=== PATIENT | male | born 1935 | race Caucasian/White ===

== ENCOUNTER 2020-12-08 14:15 | Day surgery (SDCO) | payer MEDICARE, OTHER ==
[~2020-12-08 14:15] MED LIST: MOBIC7.5 MG PO; ULTRAM50 MG PO
[2020-12-08 16:46] LABS: BASOPHIL 0.3 % (0-2); EOSINOPHIL 0 % (0-7); HCT 44.5 % (42.0-52.0); HGB 13.8 g/dl (13.2-18.0); LYMPHOCYTE 5.4 % (15-48); MCH 27.7 pg (25.0-31.0); MCV 89.4 fL (78.0-100.0); MONOCYTE 12.8 % (0-12); MPV 10.8 fL (6.0-9.5); NRBC 0; PLT 180 K/uL (150-400); RBC 4.98 M/uL (4.70-6.00); RDW 14.6 % (11.5-14.0); WBC 12.4 K/uL (4.0-10.5)
[2020-12-08 16:51] LABS: INR 1.11 (0.9-1.2); PROTHROMBIN TIME 13.6 SECONDS (11.4-13.6); PTT 33.9 SECONDS (22.2-34.7)
[2020-12-08 17:10] LABS: ALBUMIN 3.2 g/dL (3.4-5.0); BILIRUBIN - TOTAL 1.2 mg/dL (0.2-1.0); BUN/CREAT RATIO (CALC) 15.6 RATIO; C-REACTIVE PROTEIN 6.2 mg/dL (<=0.90); CREATININE 1.6 mg/dL (0.67-1.17); MAGNESIUM 2.4 mg/dL (1.8-2.4); POTASSIUM 5.1 mmol/L (3.5-5.1); TOTAL PROTEIN 7.2 g/dL (6.4-8.2)
[2020-12-08 17:53] LABS: BILIRUBIN NEGATIVE (NEGATIVE); BLOOD NEGATIVE Ery/uL (NEGATIVE); CLARITY CLEAR (CLEAR); COLOR YELLOW (YELLOW); GLUCOSE (U) NORMAL (NORMAL); LEUKOCYTES NEGATIVE Leu/uL (NEGATIVE); NITRITE NEGATIVE (NEGATIVE); PROTEIN NEGATIVE (NEGATIVE); UROBILINOGEN 0.2 mg/dL (0.2-1.0)
[2020-12-08] MEDS ORDERED: NORVASC5 MG PO (23:45)
[2020-12-08] MEDS ORDERED: AMIODARONE HCL200 MG PO (23:45)
[2020-12-08] MEDS ORDERED: NORCO 5-325 TA1 EACH PO (23:45)
[2020-12-08] MEDS ORDERED: COZAAR50 MG PO (23:46)
[2020-12-08] MEDS ORDERED: LIPITOR40 MG PO (23:46)
[2020-12-08] MEDS ORDERED: ASPIRIN CHEWABL81 MG PO (23:46)
[2020-12-08] MEDS ORDERED: PROTONIX 40MG T40 MG PO (23:46)
[2020-12-08] MEDS ORDERED: KEFLEX250 MG PO (23:48)
[2020-12-09 06:00] LABS: BASOPHIL 0.4 % (0-2); EOSINOPHIL 0.4 % (0-7); HCT 39.2 % (42.0-52.0); LYMPHOCYTE 13.4 % (15-48); MCH 27.3 pg (25.0-31.0); MCHC 30.6 g/dL (32.0-36.0); MCV 89.3 fL (78.0-100.0); MONOCYTE 17.9 % (0-12); MPV 11.3 fL (6.0-9.5); NEUTROPHIL 67.5 % (41-80); NRBC 0; PLT 158 K/uL (150-400); RBC 4.39 M/uL (4.70-6.00); RDW 14.9 % (11.5-14.0); WBC 9.5 K/uL (4.0-10.5)
[2020-12-09 06:22] LABS: BUN/CREAT RATIO (CALC) 17.9 RATIO; CREATININE 1.4 mg/dL (0.67-1.17); POTASSIUM 4.5 mmol/L (3.5-5.1)
--- NOTE | 2020-12-09 17:24 | NUR ---
SPOKE TO BOTH SHAUNA AND ÁLVARO DELGADO HIS POA HE HAS ROLLING WALKER, CANE, AT HOME, HE HAS A SHOWER CHAIR AT HOME. HE HAS A USED HOSPITAL. OT RECCOMMENDED HE HAD HOME HEALTH; EXPLAINED ALL OPTIONS AFFILIATIONS EXPLAINED AND HE WANTED WHO HE HAS LAST TIME ÁLVARO SAID SHE CANT REMEMBER WHO IF I CANT FIND OUT WHO IT WAS I CAN USE WHOEVER TAKES INSURANCE. WILL CALL AROUND HOME [facility] TO SEE WHO HAD HIM. IF I CAN NOT FIND ONE BOTH PT AND ÁLVARO SAID TO PICK ONE THAT WILL TAKE HIS INSURANCE.
--- NOTE | 2020-12-09 17:56 | NUR ---
[facility] CONFIRMED [facility] DID NOT HAVE PT WELL; CALLED EROS LARA FROM A SENT REFERRAL WITH PT/OT NOTES, H&P AND FACESHEET WITH CORRECT ADDRESS PT WILL BE GOING TO AFTER DISCHARGE; SHE CONFIRMED SHE HAD THE REFERRL
--- NOTE | 2020-12-09 17:57 | NUR ---
IF PT DISCHARGES OVER WEEKEND PLEASE CALL EROS AT A [phone] TO NOTIFY OF DISCHARGE
[2020-12-09 18:51] LABS: IRON % SATURATION 7.6 %SAT (20-50)
[2020-12-10 04:28] LABS: BASOPHIL 0.1 % (0-2); EOSINOPHIL 0 % (0-7); HCT 40.2 % (42.0-52.0); HGB 12.5 g/dl (13.2-18.0); LYMPHOCYTE 7.9 % (15-48); MCH 27.9 pg (25.0-31.0); MCHC 31.1 g/dL (32.0-36.0); MCV 89.7 fL (78.0-100.0); MPV 11.4 fL (6.0-9.5); NEUTROPHIL 82.5 % (41-80); NRBC 0; PLT 175 K/uL (150-400); RBC 4.48 M/uL (4.70-6.00); WBC 10.6 K/uL (4.0-10.5)
[2020-12-10 04:46] LABS: BUN/CREAT RATIO (CALC) 20.2 RATIO; CREATININE 1.24 mg/dL (0.67-1.17); MAGNESIUM 2.2 mg/dL (1.8-2.4); POTASSIUM 4.8 mmol/L (3.5-5.1)
[2020-12-10] MEDS ORDERED: TOPROL XL100 MG PO (09:18)
[2020-12-10] MEDS ORDERED: PERCOCET 5-3251 EACH PO (09:18)
== END 2020-12-10 12:37 | disposition home health service (06) ==
LOC: FER 14:15 → FMS 21:41
PROVIDERS: Emergency Medicine; Nurse Practitioner; ADMIT Internal Medicine
DX: I12.9 Hypertensive chronic kidney disease with stage 1 through stage 4 chronic kidney disease, or unspecified chronic kidney disease (principal); N18.30 Chronic kidney disease, stage 3 unspecified; N17.9 Acute kidney failure, unspecified; I48.0 Paroxysmal atrial fibrillation; I25.10 Atherosclerotic heart disease of native coronary artery without angina pectoris; I25.2 Old myocardial infarction; E78.5 Hyperlipidemia, unspecified; K21.9 Gastro-esophageal reflux disease without esophagitis; M19.90 Unspecified osteoarthritis, unspecified site; J45.909 Unspecified asthma, uncomplicated; M25.722 Osteophyte, left elbow; M25.522 Pain in left elbow; M19.022 Primary osteoarthritis, left elbow; Z85.46 Personal history of malignant neoplasm of prostate; Z79.82 Long term (current) use of aspirin; Z79.899 Other long term (current) drug therapy; Z88.8 Allergy status to other drugs, medicaments and biological substances; Z95.0 Presence of cardiac pacemaker; Z20.822 Contact with and (suspected) exposure to COVID-19; W18.30XA Fall on same level, unspecified, initial encounter
CPT/HCPCS: 36415; 70450; 71045; 73070; 73200; 80048; 80053; 81003; 82550; 82607; 82728; 83540; 83550; 83615; 83735; 83880; 84145; 84484; 85025; 85610; 85730; 86140; 93005; 96374; 96375; 97162; 97166; 97530-GP; 97535; G0378; J1170; J1650; J2405; J2930; J3420; J7030; U0002

== ENCOUNTER 2021-08-04 10:00 | Emergency (ER) | payer MEDICARE, OTHER ==
[~2021-08-04 10:00] MED LIST changes: +AMIODARONE HCL200 MG PO; +CHILDREN'S ASPI81 MG PO; +COZAAR50 MG PO; +KEFLEX250 MG PO; +LIPITOR40 MG PO; +NORCO 5-325 TA1 EACH PO; +NORVASC5 MG PO; +PERCOCET 5-3251 EACH PO; +PROTONIX 40MG T40 MG PO; +TOPROL XL100 MG PO
[2021-08-04 10:54] LABS: BASOPHIL 0.8 % (0-2); EOSINOPHIL 1.2 % (0-7); HCT 45.4 % (42.0-52.0); HGB 14.7 g/dl (13.2-18.0); LYMPHOCYTE 4.6 % (15-48); MCH 29.9 pg (25.0-31.0); MCHC 32.4 g/dL (32.0-36.0); MCV 92.5 fL (78.0-100.0); MONOCYTE 7.8 % (0-12); NEUTROPHIL 81.1 % (41-80); NRBC 0; PLT 174 K/uL (150-400); RBC 4.91 M/uL (4.70-6.00); RDW 15.5 % (11.5-14.0); WBC 12.1 K/uL (4.0-10.5)
[2021-08-04 11:28] LABS: PRO-BNP 2324 pg/mL (<450)
[2021-08-04 11:30] LABS: ALBUMIN 2.4 g/dL (3.4-5.0); BUN/CREAT RATIO (CALC) 18.6 RATIO; CREATININE 1.77 mg/dL (0.67-1.17); GLOBULIN (CALCULATION) 3.3 g/dL; POTASSIUM 5.1 mmol/L (3.5-5.1); TOTAL PROTEIN 5.7 g/dL (6.4-8.2)
[2021-08-04] MEDS ORDERED: K-DUR20 MEQ PO (13:24)
[2021-08-04] MEDS ORDERED: LASIX20 MG PO (13:24)
== END 2021-08-04 15:40 | disposition home or self-care (01) ==
LOC: FER 10:00
PROVIDERS: Emergency Medicine
DX: I11.0 Hypertensive heart disease with heart failure (principal); I50.9 Heart failure, unspecified; N17.9 Acute kidney failure, unspecified; U07.1 COVID-19; Z23 Encounter for immunization; Z88.8 Allergy status to other drugs, medicaments and biological substances
CPT/HCPCS: 36415; 36600; 71045; 80053; 82803; 83880; 84484; 85025; 93005; J1940; M0243; Q0244

== ENCOUNTER 2021-08-14 11:41 | Inpatient (IN) | payer MEDICARE, OTHER ==
[~2021-08-14] VITALS: Ht 190.5 cm; Wt 95.3 kg
[~2021-08-14 11:41] MED LIST changes: +K-DUR20 MEQ PO; +LASIX20 MG PO
[2021-08-14 12:52] LABS: BASOPHIL 1.2 % (0-2); HCT 43.1 % (42.0-52.0); HGB 13.9 g/dl (13.2-18.0); LYMPHOCYTE 3.4 % (15-48); MCH 29.9 pg (25.0-31.0); MCHC 32.3 g/dL (32.0-36.0); MCV 92.7 fL (78.0-100.0); MONOCYTE 6.8 % (0-12); MPV 10.7 fL (6.0-9.5); NEUTROPHIL 74.6 % (41-80); NRBC 0; PLT 256 K/uL (150-400); RBC 4.65 M/uL (4.70-6.00); RDW 15.9 % (11.5-14.0); WBC 17.2 K/uL (4.0-10.5)
[2021-08-14 13:13] LABS: ALBUMIN 1.7 g/dL (3.4-5.0); BILIRUBIN - TOTAL 0.8 mg/dL (0.2-1.0); BUN/CREAT RATIO (CALC) 20.9 RATIO; CREATININE 2.68 mg/dL (0.67-1.17); GLOBULIN (CALCULATION) 3.9 g/dL; POTASSIUM 5.8 mmol/L (3.5-5.1); TOTAL PROTEIN 5.6 g/dL (6.4-8.2)
[2021-08-14 13:22] LABS: PRO-BNP 1291 pg/mL (<450)
[2021-08-14 13:24] LABS: BILIRUBIN NEGATIVE (NEGATIVE); BLOOD NEGATIVE Ery/uL (NEGATIVE); CLARITY CLEAR (CLEAR); COLOR YELLOW (YELLOW); GLUCOSE (U) NORMAL (NORMAL); LEUKOCYTES NEGATIVE Leu/uL (NEGATIVE); NITRITE NEGATIVE (NEGATIVE); PROTEIN NEGATIVE (NEGATIVE); SPECIFIC GRAVITY 1.015 (1.001-1.030); UROBILINOGEN 0.2 mg/dL (0.2-1.0); pH 5.5 (5.0-9.0)
[2021-08-14 23:45] LABS: URINE CREATININE 61.79 mg/dL (29.00-226.00)
[2021-08-15 06:26] LABS: BASOPHIL 1.3 % (0-2); EOSINOPHIL 4.6 % (0-7); HCT 44.3 % (42.0-52.0); HGB 14.3 g/dl (13.2-18.0); LYMPHOCYTE 5.7 % (15-48); MCH 29.7 pg (25.0-31.0); MCHC 32.3 g/dL (32.0-36.0); MCV 91.9 fL (78.0-100.0); MONOCYTE 6.3 % (0-12); MPV 10.5 fL (6.0-9.5); NEUTROPHIL 72.4 % (41-80); NRBC 0.1; PLT 261 K/uL (150-400); RBC 4.82 M/uL (4.70-6.00); RDW 15.9 % (11.5-14.0); WBC 15.5 K/uL (4.0-10.5)
[2021-08-15 06:45] LABS: BUN/CREAT RATIO (CALC) 21.5 RATIO; CREATININE 2.56 mg/dL (0.67-1.17); POTASSIUM 4.7 mmol/L (3.5-5.1)
[2021-08-16 06:40] LABS: BASOPHIL 1.3 % (0-2); EOSINOPHIL 4.1 % (0-7); HCT 46.1 % (42.0-52.0); HGB 14.7 g/dl (13.2-18.0); LYMPHOCYTE 5.5 % (15-48); MCH 29.8 pg (25.0-31.0); MCHC 31.9 g/dL (32.0-36.0); MCV 93.3 fL (78.0-100.0); MONOCYTE 6.6 % (0-12); MPV 10.5 fL (6.0-9.5); NEUTROPHIL 73.7 % (41-80); NRBC 0; PLT 249 K/uL (150-400); RBC 4.94 M/uL (4.70-6.00); RDW 15.8 % (11.5-14.0)
[2021-08-16 06:51] LABS: WBC 17.4 K/uL (4.0-10.5)
[2021-08-16 07:00] LABS: ALBUMIN 1.8 g/dL (3.4-5.0); BILIRUBIN - TOTAL 0.5 mg/dL (0.2-1.0); CREATININE 3.72 mg/dL (0.67-1.17); GLOBULIN (CALCULATION) 4.5 g/dL; POTASSIUM 5.3 mmol/L (3.5-5.1); TOTAL PROTEIN 6.3 g/dL (6.4-8.2)
[2021-08-17 07:14] LABS: BUN/CREAT RATIO (CALC) 22.2 RATIO; CREATININE 3.24 mg/dL (0.67-1.17); FT4 (FREE T4) 1.4 ng/dL (0.76-1.46); MAGNESIUM 2.1 mg/dL (1.8-2.4)
--- NOTE | 2021-08-17 16:59 | NUR ---
PATIENT VOIDED 200ML PER URINAL. POST VOID RESIDUAL BLADDER SCAN SHOWED 0ML URINE DETECTED IN BLADDER WITH BLADDER SCAN
[2021-08-18 06:20] LABS: BUN/CREAT RATIO (CALC) 24.9 RATIO; CREATININE 2.81 mg/dL (0.67-1.17); POTASSIUM 5.5 mmol/L (3.5-5.1)
[2021-08-18] MEDS ORDERED: NORCO 5-325 TA1 EACH PO (11:37)
[2021-08-18] MEDS ORDERED: LASIX20 MG PO (11:37)
== END 2021-08-18 16:02 | disposition home health service (06) | DRG 177 ==
LOC: FER 11:41 → FMS 14:01
PROVIDERS: Allergy & Immunology Allergy; Emergency Medicine; ADMIT Internal Medicine
PROC: 8E0ZXY6 Isolation (ICD-10-PCS; principal; 2021-08-15)
DX: U07.1 COVID-19 (principal); J12.82 Pneumonia due to coronavirus disease 2019; N17.9 Acute kidney failure, unspecified; E87.1 Hypo-osmolality and hyponatremia; E46 Unspecified protein-calorie malnutrition; E87.5 Hyperkalemia; I71.2 Thoracic aortic aneurysm, without rupture; N18.30 Chronic kidney disease, stage 3 unspecified; I12.9 Hypertensive chronic kidney disease with stage 1 through stage 4 chronic kidney disease, or unspecified chronic kidney disease; I25.10 Atherosclerotic heart disease of native coronary artery without angina pectoris; K21.9 Gastro-esophageal reflux disease without esophagitis; I50.9 Heart failure, unspecified; M19.90 Unspecified osteoarthritis, unspecified site; I48.0 Paroxysmal atrial fibrillation; J45.909 Unspecified asthma, uncomplicated; E78.5 Hyperlipidemia, unspecified; R60.0 Localized edema; Z85.46 Personal history of malignant neoplasm of prostate; Z95.0 Presence of cardiac pacemaker; Z98.890 Other specified postprocedural states; Z90.79 Acquired absence of other genital organ(s); Z83.3 Family history of diabetes mellitus; Z82.49 Family history of ischemic heart disease and other diseases of the circulatory system; Z88.8 Allergy status to other drugs, medicaments and biological substances; Z79.82 Long term (current) use of aspirin; Z79.899 Other long term (current) drug therapy; Z68.26 Body mass index [BMI] 26.0-26.9, adult
CPT/HCPCS: 36415; 71045; 71250; 80048; 80053; 81003; 82530; 82553; 82570; 83735; 83880; 84300; 84439; 84443; 84484; 85025; 93005; 94010; 94667; 94668; 97110; 97163; 97166; 97530-GP; 97535; J1644; J1940; J2405; J7030; J7040; J7121; M0243; U0002

== ENCOUNTER 2021-11-11 12:20 | Emergency (ER) | payer MEDICARE, OTHER ==
[2021-11-11 13:36] LABS: BASOPHIL 1.1 % (0-2); EOSINOPHIL 1.1 % (0-7); HCT 46.7 % (42.0-52.0); HGB 15.2 g/dl (13.2-18.0); MCH 31.1 pg (25.0-31.0); MCHC 32.5 g/dL (32.0-36.0); MCV 95.5 fL (78.0-100.0); MONOCYTE 10.1 % (0-12); MPV 10.5 fL (6.0-9.5); NEUTROPHIL 70.9 % (41-80); NRBC 0; PLT 202 K/uL (150-400); RBC 4.89 M/uL (4.70-6.00); RDW 13.7 % (11.5-14.0); WBC 7.5 K/uL (4.0-10.5)
[2021-11-11 13:46] LABS: INR 1.07 (0.9-1.2); PROTHROMBIN TIME 13.3 SECONDS (11.8-13.4)
[2021-11-11 14:02] LABS: BILIRUBIN - TOTAL 0.7 mg/dL (0.2-1.0); BUN/CREAT RATIO (CALC) 14.4 RATIO; CREATININE 2.29 mg/dL (0.67-1.17); GLOBULIN (CALCULATION) 3.6 g/dL; POTASSIUM 3.5 mmol/L (3.5-5.1); TOTAL PROTEIN 6.6 g/dL (6.4-8.2)
[2021-11-11 14:22] LABS: LDH 236 U/L (85-227); LIPASE 44 U/L (73-393)
[2021-11-11 14:23] LABS: C-REACTIVE PROTEIN <0.20 mg/dL (<=0.90)
[2021-11-11] MEDS ORDERED: PERCOCET 5-3251 EACH PO (15:44)
== END 2021-11-11 16:15 | disposition home or self-care (01) ==
LOC: FER 12:20
PROVIDERS: Emergency Medicine
DX: S32.511A Fracture of superior rim of right pubis, initial encounter for closed fracture (principal); I20.8 Other forms of angina pectoris; Z88.6 Allergy status to analgesic agent; Z88.8 Allergy status to other drugs, medicaments and biological substances
CPT/HCPCS: 36415; 71045; 72131; 72192; 73502; 80053; 82728; 83615; 83690; 84484; 85025; 85610; 85730; 86140; 93005; J2270; J2405

== ENCOUNTER 2022-02-26 02:44 | Emergency (ER) | payer MEDICARE, OTHER ==
[~2022-02-26 02:44] MED LIST changes: +8 HOUR PAIN RE650 MG PO; +SENOKOT8.6 MG PO; +VOLTAREN ARTHRI20 GM TOP
[2022-02-26 03:07] LABS: BASOPHIL 0.2 % (0-2); EOSINOPHIL 0 % (0-7); HGB 15.1 g/dl (13.2-18.0); MCH 30.6 pg (25.0-31.0); MCHC 32.8 g/dL (32.0-36.0); MCV 93.3 fL (78.0-100.0); MONOCYTE 11.7 % (0-12); MPV 10.2 fL (6.0-9.5); NEUTROPHIL 82.1 % (41-80); NRBC 0; PLT 240 K/uL (150-400); RBC 4.93 M/uL (4.70-6.00); RDW 15.2 % (11.5-14.0); WBC 16.5 K/uL (4.0-10.5)
[2022-02-26 03:17] LABS: BUN/CREAT RATIO (CALC) 16.8 RATIO; CREATININE 2.5 mg/dL (0.67-1.17); POTASSIUM 3.9 mmol/L (3.5-5.1)
[2022-02-26 04:33] LABS: CLARITY (FLUID) HAZY; COLOR (FLUID) YELLOW
[2022-02-26 04:34] LABS: RBC (FLUID) 10000 RBC/uL; WBC (FLUID) 26130 WBC/uL
[2022-02-26 05:25] LABS: BILIRUBIN NEGATIVE (NEGATIVE); BLOOD NEGATIVE Ery/uL (NEGATIVE); CLARITY CLEAR (CLEAR); COLOR YELLOW (YELLOW); GLUCOSE (U) NORMAL (NORMAL); LEUKOCYTES NEGATIVE Leu/uL (NEGATIVE); NITRITE NEGATIVE (NEGATIVE); PROTEIN NEGATIVE (NEGATIVE); SPECIFIC GRAVITY 1.025 (1.001-1.030); UROBILINOGEN 0.2 mg/dL (0.2-1.0); pH 5.5 (5.0-9.0)
[2022-02-26] MEDS ORDERED: NORCO 5-325 TA1 EACH PO (06:19)
== END 2022-02-26 06:38 | disposition home or self-care (01) ==
LOC: FER 02:44
PROVIDERS: Internal Medicine
DX: M25.461 Effusion, right knee (principal); I73.9 Peripheral vascular disease, unspecified; N18.9 Chronic kidney disease, unspecified; I50.9 Heart failure, unspecified
CPT/HCPCS: 36415; 70450; 71045; 71250; 73560; 80048; 81003; 85025; 87070; 87205; 89051; 96374; J1170

== ENCOUNTER 2022-07-30 13:07 | Emergency (ER) | payer MEDICARE, OTHER ==
[2022-07-30 13:31] LABS: BASOPHIL 0.3 % (0-2); EOSINOPHIL 0.2 % (0-7); HCT 40.8 % (42.0-52.0); HGB 12.9 g/dl (13.2-18.0); LYMPHOCYTE 6.3 % (15-48); MCH 30.8 pg (25.0-31.0); MCHC 31.6 g/dL (32.0-36.0); MCV 97.4 fL (78.0-100.0); MONOCYTE 5.3 % (0-12); MPV 10.2 fL (6.0-9.5); NEUTROPHIL 87.1 % (41-80); NRBC 0; PLT 199 K/uL (150-400); RBC 4.19 M/uL (4.70-6.00); RDW 14.9 % (11.5-14.0); WBC 16.7 K/uL (4.0-10.5)
[2022-07-30 13:43] LABS: ALBUMIN 2.8 g/dL (3.4-5.0); BILIRUBIN - TOTAL 0.9 mg/dL (0.2-1.0); BUN/CREAT RATIO (CALC) 21.5 RATIO; CREATININE 2.28 mg/dL (0.67-1.17); POTASSIUM 4.5 mmol/L (3.5-5.1); TOTAL PROTEIN 6.8 g/dL (6.4-8.2)
[2022-07-30 15:38] LABS: LACTIC ACID 1.6 mmol/L (0.4-1.9)
[2022-07-30] MEDS ORDERED: ELIQUIS2.5 MG PO (16:17)
[2022-07-30] MEDS ORDERED: CEPHALEXIN500 MG PO (16:17)
== END 2022-07-30 17:13 | disposition home or self-care (01) ==
LOC: FER 13:07
PROVIDERS: Emergency Medicine; Nurse Practitioner Family
DX: I82.411 Acute embolism and thrombosis of right femoral vein (principal); I82.431 Acute embolism and thrombosis of right popliteal vein; L03.115 Cellulitis of right lower limb; I11.0 Hypertensive heart disease with heart failure; N18.9 Chronic kidney disease, unspecified; I50.9 Heart failure, unspecified; Z95.0 Presence of cardiac pacemaker
CPT/HCPCS: 36415; 80053; 83605; 85025; 87040; 93971